=== PATIENT | male | born 1980 | race Hispanic/Latino ===

== ENCOUNTER → 2017-03-16 | Day surgery (SDC) | payer OTHER ==
[~2017-03-16] VITALS: Ht 162.6 cm; Wt 80.0 kg
[~2017-03-16] MED LIST: 0.9% Sodium Chloride 1,000 ML IV SCH; ASCO100T11 PO; FERR160T7 PO; Sodium Chloride LOK Flush 10 mL Syringe IV PRN; fentaNYL-PF 50 mCg/mL 2 mL Inj IVPUSH PRN
[2017-03-16 13:52] VITALS: BP 121/78; PULSE 60; RESP 16; O2SAT 99
[2017-03-16 15:29] VITALS: BP 110/62; PULSE 54; RESP 12; O2SAT 100
[2017-03-16 15:41] VITALS: BP_SYST 110; BP_SYST 116; BP_DIAS 59; BP_DIAS 62; PULSE 48; PULSE 53; RESP 12; O2SAT 100; O2SAT 99
--- NOTE | 2017-03-16 19:07 | ENDO ---
[address] [address] ENDOSCOPY PROCEDURE PATIENT: GILDARDO ROMAN : 1980 MR#: [id number] ADMIT: 03/16/2017 JOB ID: [id number] DATE: 03/16/2017 PROCEDURE: Esophagogastroduodenoscopy (EGD). INDICATION: Early satiety. Patient's ASA classification is one. Mallampati score is one. MEDICATIONS: Please see nurse's notes for details regarding sedation. INSTRUMENT USED: GIF H 180 J PROCEDURE DETAILS: After informed consent was obtained, the patient was brought into the GI suite where he was placed on oxygen via nasal cannula and monitored with continuous pulse oximetry, telemetry, and blood pressure monitoring. A time-out was performed, then he was placed in the left lateral decubitus position and medications were administered for sedation. A bite block was placed. The standard EGD scope was inserted through the bite block and advanced to the second portion of the duodenum. FINDINGS: 1. Normal appearing duodenal bulb, first and second portion. Multiple random biopsies were obtained. 2. Normal appearing pylorus. In the antrum at the 5 o'clock position there was what appeared to be two diverticula with surrounding mucosa that was elevated, suggestive of a submucosal mass. This area measured approximately 8 mm in size. Multiple random biopsies were obtained. The remainder of the gastric evaluation with unremarkable, with normal appearing gastric body, fundus, and cardia. 3. The GE junction was at approximately 40 cm. It appeared regular. 4. Normal appearing esophagus. IMPRESSION: Two diverticula surrounded by submucosal lesion in the antrum. Otherwise normal exam. RECOMMENDATIONS: 1. Await biopsy results. 2. Proceed to colonoscopy. PROCEDURE PERFORMED: Colonoscopy. INDICATION: Rectal bleeding. ANESTHESIA: Please see above for ASA classification, Mallampati score, and medications. INSTRUMENT USED: PCF H 180 AL. PREPARATION QUALITY: Good. PROCEDURE DETAILS: After completion of the EGD exam, the patient was turned and a digital rectal exam was performed which was unremarkable. The colonoscope was then inserted into the rectum and advanced under direct visualization to the cecum, which was identified by the presence of the ileocecal valve and appendiceal orifice. Once the cecum was reached, the terminal ileum was intubated. From there, the colonoscope was then withdrawn back as the mucosa and lumen were examined. In the rectum, retroflexion was performed. Following retroflexion, the remaining air in the rectum was suctioned and the procedure was completed. FINDINGS: 1. Normal-appearing terminal ileum. 2. Normal appearing colon mucosa from rectum to cecum. 3. Retroflexed views in the rectum revealed moderate-sized internal hemorrhoids. IMPRESSION: Internal hemorrhoids, otherwise normal exam to terminal ileum. Suspect hemorrhoids as the etiology for his bleeding. Recommend fiber rich diet and if bleeding persists a trial of Anusol suppositories. COMPLICATIONS: None. ESTIMATED BLOOD LOSS: Less than 5 mL CC: [facility]
--- NOTE | 2017-03-19 16:09 | PATH ---
SURGICAL PATHOLOGY Attending Physician:Juanjo Smiley CASE STATUS: Signed Out PATIENT NAME: GILDARDO ROMAN PID: [id number] : 1980 DATE COLLECTED:03/16/2017 00:00 SPECIMEN: 1: Duodenum, Biopsy 2: Stomach, Antrum, Biopsy 3: Gastric, Biopsy CLINICAL HISTORY: 1). DUODENUM BIOPSY 2). SUBMUCOSAL LESION OF ANTRUM 3). GASTRIC BIOPSY FINAL DIAGNOSIS: 1.DUODENUM, BIOPSY: DUODENAL MUCOSA WITH NO DIAGNOSTIC ABNORMALITY. Negative for active inflammation, features of sprue, dysplasia, and malignancy. 2.SUBMUCOSAL LESION OF ANTRUM, BIOPSY: PORTIONS OF GASTRIC ANTRAL MUCOSA WITH CHRONIC ACTIVE GASTRITIS AND REACTIVE GASTROPATHY. Possible H. pylori organisms present by H&E stain. Immunohistochemistry studies pending; results will be reported as an addendum. Negative for intestinal metaplasia, dysplasia, and malignancy. 3.GASTRIC BIOPSY: PORTIONS OF GASTRIC BODY-TYPE MUCOSA WITH CHRONIC ACTIVE GASTRITIS. Organisms concerning for H. pylori identified by H&E stain. Immunohistochemistry studies pending; results will be reported as an addendum. Negative for intestinal metaplasia, dysplasia, and malignancy. ICDK29.7 NOTE: 2. Sections demonstrate gastric antral-type mucosa involved by chronic active gastritis. There is a small amount of submucosal smooth muscle present in the biopsy. No mass is identified. GROSS DESCRIPTION: The specimens are received in formalin, labeled with the patient's name, and sublabeled as the following: (1) duodenum bx; (2) submucosal lesion of antrum bx; (3) gastric bx. (1) The specimen consists of multiple fragments of irving glistening semitranslucent tissue (0.6 x 0.3 x 0.2 cm in aggregate). Section code: (1A) tissue. Specimen entirely submitted. (2) The specimen consists of multiple fragments of irving glistening semitranslucent tissue (0.6 x 0.2 x 0.1 cm in aggregate). Section code: (2A) tissue. Specimen entirely submitted. (3) The specimen consists of multiple fragments of irving glistening semitranslucent tissue (0.5 x 0.3 x 0.1 cm in aggregate). Section code: (3A) tissue. Specimen entirely submitted. 03/17/17 JM MICRO DESCRIPTION: See diagnosis. ICD-9 CODES: CPT CODES: 1: 21402 2: 30053, 85739 3: 59088, 81795 Electronically Signed Out Soraya Zelaya MD [facility] Pathology [facility] [address], [place] [address] Technical component performed at [facility], [facility] [address], [place], [address]
== END | disposition home or self-care (01) ==
LOC: END 00:07
PROVIDERS: ATTEND Internal Medicine Gastroenterology
DX: K62.5 Hemorrhage of anus and rectum (principal); D64.9 Anemia, unspecified; K31.4 Gastric diverticulum; K29.50 Unspecified chronic gastritis without bleeding; K64.8 Other hemorrhoids; R68.81 Early satiety
CPT/HCPCS: 43239; 45378; 99152; 99153; J7030